=== PATIENT | male | born 1955 | race Caucasian/White ===

== ENCOUNTER 2021-08-27 10:44 | Outpatient (CLI) | payer OTHER, SELFPAY ==
--- NOTE | 2021-08-27 10:58 | XR_ITS ---
WS: [id number] SHOULDER RIGHT TECHNIQUE: 3 views of the right shoulder CLINICAL INFORMATION: PAIN IN RIGHT SHOULDER COMPARISON: None. FINDINGS: Mild degenerative narrowing AC joint. Moderate degenerative narrowing at the glenohumeral joint. Mild narrowing of the subacromial space. No acute fractures. Partially visualized right lung is well aera robin. XR/XR shoulder RT min 2V* [id number] IMPRESSION: Mild degenerative narrowing AC joint with moderate degenerative narrowing gleno humeral joint.
== END 2021-08-27 10:45 | disposition home or self-care (01) ==
PROVIDERS: PCP Nurse Practitioner Family; Visit Provider Nurse Practitioner Family
DX: M25.511 Pain in right shoulder (principal)
CPT/HCPCS: 73030

== ENCOUNTER 2021-12-21 07:10 | Outpatient (CLI) | payer OTHER, SELFPAY ==
--- NOTE | 2021-12-21 07:45 | USCV_ITS ---
Marcelo Rhodes Age: 66 Gender: M : 1955 Exam Date: 12/21/2021 07:24 Ordering Phys: Aissatou Carranza MD ([email or web address]) Technologist: KENZIE Exam Location: [facility] Indication: Atrial fibrillation BP: 136 / 76 HR: 89 Rhythm: Sinus Technical Quality: Adequate MEASUREMENTS (Male / Female) Normal Values 2D ECHO LV Diastolic Diameter PLAX 5.0 cm 4.2 - 5.9 / 3.9 - 5.3 cm LV Systolic Diameter PLAX 3.8 cm IVS Diastolic Thickness 0.9 cm 0.6 - 1.0 / 0.6 - 0.9 cm IVS Systolic Thickness 1.7 cm LVPW Diastolic Thickness 1.3 cm 0.6 - 1.0 / 0.6 - 0.9 cm LVPW Systolic Thickness 1.8 cm RV Chamber Size 3.4 cm LVOT Diameter 2.0 cm LV Ejection Fraction 2D Teich 44.9 % LV Ejection Fraction MOD 2C 56.9 % LV Ejection Fraction 2C AL 55.0 % LA Diameter 4.1 cm LA Width 4.7 cm LA Height 6.4 cm RA Width 4.8 cm RA Height 6.1 cm Aorta at Sinotubular Diameter 2.1 cm M-MODE Aortic Annulus Diameter 2.8 cm LA Ao Ratio MM 1.5 MV E Point Septal Separation 0.3 cm DOPPLER AV Peak Velocity 109.0 cm/s LVOT Peak Velocity 72.0 cm/s AV Area Cont Eq vti 2.0 cm squared AV Area Cont Eq pk 2.1 cm squared MV Area PHT 6.7 cm squared MV E' Velocity 92.0 cm/s TR Peak Velocity 234.5 cm/s TR Peak Gradient 22.0 mmHg TR Mean Velocity 162.8 cm/s TR Mean Gradient 12.7 mmHg TR Velocity Time Integral 76.0 cm TV Peak E Velocity 56.0 cm/s PV Peak Velocity 89.0 cm/s RV Acceleration Time 0.1 s RV Ejection Time 0.3 s RV AcT/ET 0.4 FINDINGS Left Ventricle Normal left ventricular size, systolic function and wall thickness, with no regional wall motion abnormalities. Left ventricular ejection fraction is estimated at 60 %. Rhythm precludes evaluation of diastolic function. Right Ventricle Normal right ventricular size and systolic function. Right ventricular systolic pressure 25 mmHg. Right Atrium Normal right atrial size. Left Atrium Mildly increased left atrial size. Mitral Valve Mildly thickened mitral valve. No mitral valve stenosis. Mild mitral valve regurgitation. Aortic Valve Structurally normal trileaflet aortic valve. No aortic valve stenosis. No aortic valve regurgitation. Tricuspid Valve Structurally normal tricuspid valve. No tricuspid valve stenosis. Trace tricuspid valve regurgitation. Pulmonic Valve Pulmonic valve not well visualized. No pulmonary valve stenosis. No significant pulmonary valve regurgitation. Pericardium No pericardial effusion. Aorta Normal size aortic root and proximal ascending aorta. CONCLUSIONS 1. Normal left ventricular size, systolic function and wall thickness, with no regional wall motion abnormalities. Left ventricular ejection fraction is estimated at 60 %. 2. Normal right ventricular size and systolic function. 3. Mildly increased left atrial size. 4. Mild mitral valve regurgitation. 5. Pulmonary artery pressure estimated at 25 mmHg. 6. No prior similar studies to compare. Aissatou Carranza MD (Electronically Signed) Final Date: 24 December 2021 16:33 S
== END 2021-12-21 07:11 | disposition home or self-care (01) ==
LOC: RAD 07:12
PROVIDERS: PCP Nurse Practitioner Family; Visit Provider Internal Medicine Cardiovascular Disease
DX: I48.91 Unspecified atrial fibrillation (principal); I51.7 Cardiomegaly; I34.0 Nonrheumatic mitral (valve) insufficiency
CPT/HCPCS: 93306

== ENCOUNTER → 2022-04-04 17:10 | Outpatient (BNVA) | payer OTHER, SELFPAY | PROVIDERS: PCP Nurse Practitioner Family; Visit Provider Family Medicine | DX: N39.0 Urinary tract infection, site not specified (principal); M54.50 Low back pain, unspecified | CPT/HCPCS: 81000 ==

== ENCOUNTER → 2024-07-02 10:54 | Outpatient (BNVA) | payer MEDICARE, SELFPAY | PROVIDERS: PCP Nurse Practitioner Family; Visit Provider Internal Medicine Cardiovascular Disease | DX: R07.9 Chest pain, unspecified (principal); I48.91 Unspecified atrial fibrillation | CPT/HCPCS: 93005; 99214 ==